=== PATIENT | male | born 1960 | race Caucasian/White ===

== ENCOUNTER 2019-12-02 09:40 | Emergency (ER) | payer OTHER ==
[2019-12-02] MEDS ORDERED: Sodium Chloride 0.9% 10 ML Syringe FLUSH PRN (10:32)
--- NOTE | 2019-12-02 11:16 | EDM.PDOC ---
ED HPI GENERAL MEDICAL PROBLEM - General Chief Complaint: Respiratory Problem Stated Complaint: COVID + SOB Time Seen by Provider: 12/02/19 09:49 Source of Information: Reports: Patient History Limitations: Reports: No Limitations - History of Present Illness INITIAL COMMENTS - FREE TEXT/NARRATIVE: The patient presents with shortness of breath, cough, generalized weakness, poly uria and COVID 19 positive. He was tested on because his tested positive. He started having some chest tightness on Friday and then on Friday he lost his sense of smell. The state called him that day and said he was positive. He noticed his breath sounds sounded like rice krispies popping when he breaths. He also is concerned that he is urinating almost hourly for the past couple of days. He is prediabetic and on metformin 500mg daily. He does not have much of a fever. He has no abdominal pain, nausea, vomiting or diarrhea. Onset: Gradual Duration: Week(s): Location: Reports: Chest Quality: Reports: Other (tightness) Severity: Mild Improves with: Reports: None Worsens with: Reports: None Associated Symptoms: Reports: Chest Pain, Cough, Fever/Chills, Shortness of Luz ath. Denies: Headaches, Nausea/Vomiting Chest Pain Score (Numeric/FACES): 5 - Related Data Allergies Allergy/AdvReac Type Severity Reaction Status Date / Time bee venom protein (honey bee) Allergy Severe Anaphylactic Verified 12/02/19 09:59 Shock clarithromycin [From Biaxin] Allergy Severe Anaphylactic Verified 12/02/19 09:59 Shock Sulfa (Sulfonamide Allergy Severe Anaphylactic Verified 12/02/19 09:59 Antibiotics) Shock Home Meds: Home Meds NIFEdipine [Nifedipine ER] 30 mg PO DAILY 12/02/19 [History] Rosuvastatin Calcium 10 mg PO DAILY 12/02/19 [History] Tapentadol [Nucynta] 50 mg PO DAILY 12/02/19 [History] allopurinoL [Zyloprim] 300 mg PO DAILY 12/02/19 [History] metFORMIN [Glucophage XR] 500 mg PO BEDTIME 12/02/19 [History] Past Medical History HEENT History: Reports: Sinusitis Cardiovascular History: Reports: High Cholesterol Musculoskeletal History: Reports: Arthritis, Fracture, Gout Neurological History: Reports: Neuropathy, Peripheral Endocrine/Metabolic History: Reports: Diabetes, Type II - Infectious Disease History Infectious Disease History: Reports: Novel Coronavirus - Past Surgical History HEENT Surgical History: Reports: Naso-Sinus Surgery Musculoskeletal Surgical History: Reports: ORIF Social & Family History - Tobacco Use Smoking Status *Q: Never Smoker - Recreational Drug Use Recreational Drug Use: No ED ROS GENERAL - Review of Systems Review Of Systems: See Below Constitutional: Reports: Weakness, Fatigue HEENT: Reports: No Symptoms Respiratory: Reports: Shortness of Breath, Cough Cardiovascular: Reports: Chest Pain Endocrine: Reports: No Symptoms GI/Abdominal: Reports: No Symptoms : Reports: No Symptoms Musculoskeletal: Reports: Other (Body ache) ED EXAM, GENERAL - Physical Exam Exam: See Below Exam Limited By: No Limitations General Appearance: Alert, No Apparent Distress Ears: Normal External Exam Nose: Normal Inspection Head: Atraumatic, Normocephalic Neck: Normal Inspection Respiratory/Chest: No Respiratory Distress, Lungs Clear, Normal Breath Sounds Cardiovascular: Regular Rate, Rhythm, No Edema, No Murmur GI/Abdominal: Soft, Non-Tender, No Organomegaly, No Mass Back Exam: Normal Inspection Extremities: Normal Inspection EKG INTERPRETATION EKG Date: 12/02/19 Time: 10:48 Rhythm: NSR Rate (Beats/Min): 68 [place]: Normal P-Wave: Present QRS: Normal ST-T: Normal QT: Normal EKG Interpretation Comments: PVC Course - Vital Signs Last Recorded V/S: Last Vital Signs Temp 97.6 F 12/02/19 09:54 Pulse 77 12/02/19 09:54 Resp 16 12/02/19 09:54 BP 137/96 H 12/02/19 09:54 Pulse Ox 93 L 12/02/19 09:54 - Orders/Labs/Meds Orders: Active Orders 24 hr Category Date Time Status Cardiac Monitoring [RC] . DIRECTED Care 12/02/19 10:32 Active EKG Documentation Completion [RC] STAT Care 12/02/19 10:33 Active Oxygen Therapy [RC] PRN Care 12/02/19 10:33 Active Peripheral IV Care [RC] . DIRECTED Care 12/02/19 10:33 Active RT Post Treatment Assessment [RC] Click to Edit Care 12/02/19 12:06 Ordered RT Pre-Treatment Assessment [RC] Click to Edit Care 12/02/19 12:06 Ordered Chest 1V Frontal [CR] Stat Exams 12/02/19 10:34 Taken UA W/MICROSCOPIC [URIN] Stat Lab 12/02/19 10:32 Ordered Sodium Chloride 0.9% [Saline Flush] Med 12/02/19 10:32 Active 10 ml FLUSH ASDIRECTED PRN Peripheral IV Insertion Adult [OM.PC] Stat Oth 12/02/19 10:32 Ordered Medication Orders Sodium Chloride (Saline Flush) 10 ml FLUSH ASDIRECTED PRN PRN Reason: Keep Vein Open Last Admin: 12/02/19 11:14 Dose: 10 ml Documented by: GUILLERMO Labs: Laboratory Tests 12/02/19 12/02/19 12/02/19 Range/Units 10:49 10:55 10:55 WBC 4.33 (4.23-9.07) K/mm3 RBC 5.01 (4.63-6.08) M/mm3 Hgb 14.6 (13.7-17.5) gm/dl Hct 44.1 (40.1-51.0) % MCV 88.0 (79.0-92.2) fl MCH 29.1 (25.7-32.2) pg MCHC 33.1 (32.2-35.5) g/dl RDW Std Deviation 42.6 (35.1-43.9) fL Plt Count 150 L (163-337) K/mm3 MPV 10.9 (9.4-12.3) fl Neut % (Auto) 68.3 H (34.0-67.9) % Lymph % (Auto) 17.8 L (21.8-53.1) % Drew % (Auto) 12.5 H (5.3-12.2) % Eos % (Auto) 0.7 L (0.8-7.0) Baso % (Auto) 0.2 (0.1-1.2) % Neut # (Auto) 2.96 (1.78-5.38) K/mm3 Lymph # (Auto) 0.77 L (1.32-3.57) K/mm3 Drew # (Auto) 0.54 (0.30-0.82) K/mm3 Eos # (Auto) 0.03 L (0.04-0.54) K/mm3 Baso # (Auto) 0.01 (0.01-0.08) K/mm3 PT 10.8 (9.7-11.7) SECONDS INR 1.01 APTT 29 (22-31) SECONDS D-Dimer, Quantitative 0.50 (0.19-0.50) mg/L Puncture Site Lt radial ABG pH 7.45 (7.35-7.45) ABG pCO2 34.3 L (35.0-45.0) mmHg ABG pO2 72.0 L (80.0-100.0) mmHg ABG HCO3 23.4 (22.0-26.0) meq/L ABG O2 Saturation 95.6 L (96.0-97.0) % ABG Base Excess 0.4 (-2-2.0) Jacobo Test Positive A-a Gradient 34 mmHg O2 Delivery Device Room air FiO2 21.00 (21.00-100.00) % Sodium (136-145) mEq/L Potassium (3.5-5.1) mEq/L Chloride (98-107) mEq/L Carbon Dioxide (21-32) mEq/L Anion Gap (5-15) BUN (7-18) mg/dL Creatinine (0.7-1.3) mg/dL Est Cr Clr Drug Dosing mL/min Estimated GFR (MDRD) (>60) mL/min BUN/Creatinine Ratio (14-18) Glucose (74-106) mg/dL Serum Osmolality (280-300) mosm/kg Lactic Acid (0.4-2.0) mmol/L Calcium (8.5-10.1) mg/dL Ferritin (26-388) ng/ml Total Bilirubin (0.2-1.0) mg/dL AST (15-37) U/L ALT (16-63) U/L Alkaline Phosphatase (46-116) U/L Lactate Dehydrogenase (85-227) U/L Troponin I (0.00-0.056) ng/mL C-Reactive Protein (<1.0) mg/dL NT-Pro-B Natriuret Pep (0-125) pg/mL Total Protein (6.4-8.2) g/dl Albumin (3.4-5.0) g/dl Globulin gm/dL Albumin/Globulin Ratio (1-2) Ketones (0.0-0.3) mM 12/02/19 12/02/1912/01/20 Range/Units 10:55 10:55 10:55 WBC (4.23-9.07) K/mm3 RBC (4.63-6.08) M/mm3 Hgb (13.7-17.5) gm/dl Hct (40.1-51.0) % MCV (79.0-92.2) fl MCH (25.7-32.2) pg MCHC (32.2-35.5) g/dl RDW Std Deviation (35.1-43.9) fL Plt Count (163-337) K/mm3 MPV (9.4-12.3) fl Neut % (Auto) (34.0-67.9) % Lymph % (Auto) (21.8-53.1) % Drew % (Auto) (5.3-12.2) % Eos % (Auto) (0.8-7.0) Baso % (Auto) (0.1-1.2) % Neut # (Auto) (1.78-5.38) K/mm3 Lymph # (Auto) (1.32-3.57) K/mm3 Drew # (Auto) (0.30-0.82) K/mm3 Eos # (Auto) (0.04-0.54) K/mm3 Baso # (Auto) (0.01-0.08) K/mm3 PT (9.7-11.7) SECONDS INR APTT (22-31) SECONDS D-Dimer, Quantitative (0.19-0.50) mg/L Puncture Site ABG pH (7.35-7.45) ABG pCO2 (35.0-45.0) mmHg ABG pO2 (80.0-100.0) mmHg ABG HCO3 (22.0-26.0) meq/L ABG O2 Saturation (96.0-97.0) % ABG Base Excess (-2-2.0) Jacobo Test A-a Gradient mmHg O2 Delivery Device FiO2 (21.00-100.00) % Sodium 140 (136-145) mEq/L Potassium 3.8 (3.5-5.1) mEq/L Chloride 103 (98-107) mEq/L Carbon Dioxide 26 (21-32) mEq/L Anion Gap 14.8 (5-15) BUN 13 (7-18) mg/dL Creatinine 0.7 (0.7-1.3) mg/dL Est Cr Clr Drug Dosing 137.78 mL/min Estimated GFR (MDRD) > 60 (>60) mL/min BUN/Creatinine Ratio 18.6 H (14-18) Glucose 128 H (74-106) mg/dL Serum Osmolality 295 (280-300) mosm/kg Lactic Acid 0.6 (0.4-2.0) mmol/L Calcium 9.1 (8.5-10.1) mg/dL Ferritin (26-388) ng/ml Total Bilirubin 0.8 (0.2-1.0) mg/dL AST 27 (15-37) U/L ALT 36 (16-63) U/L Alkaline Phosphatase 82 (46-116) U/L Lactate Dehydrogenase 196 (85-227) U/L Troponin I < 0.017 (0.00-0.056) ng/mL C-Reactive Protein 2.6 H* (<1.0) mg/dL NT-Pro-B Natriuret Pep 176 H (0-125) pg/mL Total Protein 7.4 (6.4-8.2) g/dl Albumin 3.8 (3.4-5.0) g/dl Globulin 3.6 gm/dL Albumin/Globulin Ratio 1.1 (1-2) Ketones (0.0-0.3) mM 12/02/19 12/02/19 Range/Units 10:55 10:55 WBC (4.23-9.07) K/mm3 RBC (4.63-6.08) M/mm3 Hgb (13.7-17.5) gm/dl Hct (40.1-51.0) % MCV (79.0-92.2) fl MCH (25.7-32.2) pg MCHC (32.2-35.5) g/dl RDW Std Deviation (35.1-43.9) fL Plt Count (163-337) K/mm3 MPV (9.4-12.3) fl Neut % (Auto) (34.0-67.9) % Lymph % (Auto) (21.8-53.1) % Drew % (Auto) (5.3-12.2) % Eos % (Auto) (0.8-7.0) Baso % (Auto) (0.1-1.2) % Neut # (Auto) (1.78-5.38) K/mm3 Lymph # (Auto) (1.32-3.57) K/mm3 Drew # (Auto) (0.30-0.82) K/mm3 Eos # (Auto) (0.04-0.54) K/mm3 Baso # (Auto) (0.01-0.08) K/mm3 PT (9.7-11.7) SECONDS INR APTT (22-31) SECONDS D-Dimer, Quantitative (0.19-0.50) mg/L Puncture Site ABG pH (7.35-7.45) ABG pCO2 (35.0-45.0) mmHg ABG pO2 (80.0-100.0) mmHg ABG HCO3 (22.0-26.0) meq/L ABG O2 Saturation (96.0-97.0) % ABG Base Excess (-2-2.0) Jacobo Test A-a Gradient mmHg O2 Delivery Device FiO2 (21.00-100.00) % Sodium (136-145) mEq/L Potassium (3.5-5.1) mEq/L Chloride (98-107) mEq/L Carbon Dioxide (21-32) mEq/L Anion Gap (5-15) BUN (7-18) mg/dL Creatinine (0.7-1.3) mg/dL Est Cr Clr Drug Dosing mL/min Estimated GFR (MDRD) (>60) mL/min BUN/Creatinine Ratio (14-18) Glucose (74-106) mg/dL Serum Osmolality (280-300) mosm/kg Lactic Acid (0.4-2.0) mmol/L Calcium (8.5-10.1) mg/dL Ferritin 441 H (26-388) ng/ml Total Bilirubin (0.2-1.0) mg/dL AST (15-37) U/L ALT (16-63) U/L Alkaline Phosphatase (46-116) U/L Lactate Dehydrogenase (85-227) U/L Troponin I (0.00-0.056) ng/mL C-Reactive Protein (<1.0) mg/dL NT-Pro-B Natriuret Pep (0-125) pg/mL Total Protein (6.4-8.2) g/dl Albumin (3.4-5.0) g/dl Globulin gm/dL Albumin/Globulin Ratio (1-2) Ketones 0.08 (0.0-0.3) mM Meds: Medications Generic Name Dose Route Start Last Admin Trade Name Lily PRN Reason Stop Dose Admin Sodium Chloride 10 ml 12/02/19 10:32 12/02/19 11:14 Saline Flush FLUSH 10 ml ASDIRECTED PRN Administration Keep Vein Open Discontinued Medications Generic Name Dose Route Start Last Admin Trade Name Freq PRN Reason Stop Dose Admin Albuterol 0 gm 12/02/19 12:06 Proventil Hfa INH 12/02/19 12:07 ONETIME ONE - Re-Assessments/Exams Free Text/Narrative Re-Assessment/Exam: 12/02/19 11:18 I ordered an IV saline lock, O2 2L as needed, CXR, labs, ABG, blood cultures and lactic acid. His EKG shows a NSR with a PVC and nothing acute. His CXR looks good. 12/02/19 12:08 His CBC looks good. His PT and PTT look good. His pH is normal at 7.45. His pCO2 is a little low at 34.3. His pO2 is a little low at 72. His glucose is 128. His lactic acid is normal. His ferritin is elevated at 441. His troponin is negative. His CRP is elevated at 2.6. His BNP is slightly elevated at 176. His ketones are normal. He feels better. He does not need to be admitted. I will discharge him home. Departure - Departure Time of Disposition: 12:10 Disposition: Home, Self-Care 01 Condition: Good Clinical Impression: COVID-19, Polyuria - Discharge Information *PRESCRIPTION DRUG MONITORING PROGRAM REVIEWED*: Not Applicable *COPY OF PRESCRIPTION DRUG MONITORING REPORT IN PATIENT MAGALI: Not Applicable Referrals: Jayla Akres NP [Primary Care Provider] - 1 Week Forms: ED Department Discharge Additional Instructions: Keep pushing the fluids. It appears good hydration is making you urinate so much. That is needed with this virus so keep pushing the fluids. Use the inhaler 2 puffs every 6 hours. Please return if you are worse. Sepsis Event Note (ED) - Evaluation Sepsis Screening Result: No Definite Risk - Focused Exam Vital Signs: Vital Signs Temp Pulse Resp BP Pulse Ox 12/02/19 09:54 97.6 F 77 16 137/96 H 93 L - My Orders Last 24 Hours: My Active Orders 12/02/19 10:32 Cardiac Monitoring [RC] . DIRECTED UA W/MICROSCOPIC [URIN] Stat Sodium Chloride 0.9% [Saline Flush] 10 ml FLUSH ASDIRECTED PRN Peripheral IV Insertion Adult [OM.PC] Stat 12/02/19 10:33 EKG Documentation Completion [RC] STAT Oxygen Therapy [RC] PRN Peripheral IV Care [RC] . DIRECTED 12/02/19 10:34 Chest 1V Frontal [CR] Stat 12/02/19 12:06 RT Post Treatment Assessment [RC] Click to Edit RT Pre-Treatment Assessment [RC] Click to Edit - Assessment/Plan Last 24 Hours: My Active Orders 12/02/19 10:32 Cardiac Monitoring [RC] . DIRECTED UA W/MICROSCOPIC [URIN] Stat Sodium Chloride 0.9% [Saline Flush] 10 ml FLUSH ASDIRECTED PRN Peripheral IV Insertion Adult [OM.PC] Stat 12/02/19 10:33 EKG Documentation Completion [RC] STAT Oxygen Therapy [RC] PRN Peripheral IV Care [RC] . DIRECTED 12/02/19 10:34 Chest 1V Frontal [CR] Stat 12/02/19 12:06 RT Post Treatment Assessment [RC] Click to Edit RT Pre-Treatment Assessment [RC] Click to Edit
[2019-12-02] MEDS ORDERED: Albuterol 6.7 GM Inhaler INH ONE (12:06)
--- NOTE | 2020-01-03 10:34 | CR ---
PROCEDURE INFORMATION: Exam: XR Chest, 1 View Exam date and time: 12/02/2019 10:21 AM Age: 59 years old Clinical indication: Chest pain TECHNIQUE: Imaging protocol: XR of the chest Views: 1 view. COMPARISON: No relevant prior studies available. FINDINGS: Lungs: No lung consolidation or pulmonary edema. Pleural space: No pleural effusion or pneumothorax. Heart/Mediastinum: The cardiac silhouette is not enlarged. The mediastinal contours are normal. Bones/joints: No acute osseous abnormality. IMPRESSION: No acute abnormality. COMMENTS: The exam was performed on 12/02/2019 but only presented for FINAL interpretation today. Thank you for allowing us to participate in the care of your patient. Dictated and Authenticated by: Torsten Martinez MD 12/28/2019 8:39 AM Central Time ([place] & [place]) [facility]
== END 2019-12-02 12:40 | disposition home or self-care (01) ==
LOC: JD.ED 09:40
DX: U07.1 COVID-19 (principal); R35.8 Other polyuria; E78.00 Pure hypercholesterolemia, unspecified; M10.9 Gout, unspecified; E11.42 Type 2 diabetes mellitus with diabetic polyneuropathy; Z79.84 Long term (current) use of oral hypoglycemic drugs; Z79.899 Other long term (current) drug therapy; Z91.030 Bee allergy status; Z88.1 Allergy status to other antibiotic agents; Z88.2 Allergy status to sulfonamides
CPT/HCPCS: 36415; 36600; 71045; 80053; 81001; 82009; 82728; 82803; 83605; 83615; 83880; 83930; 84484; 85025; 85379; 85610; 85730; 86140; 93005; 99285; A9270; 93010; 99283

== ENCOUNTER 2025-02-03 09:49 | Emergency (ER) | payer MEDICARE, OTHER | END 2025-02-03 11:00 | LOC: JD.ED 09:49 | DX: S01.01XA Laceration without foreign body of scalp, initial encounter (principal); E78.00 Pure hypercholesterolemia, unspecified; E11.9 Type 2 diabetes mellitus without complications; Z88.1 Allergy status to other antibiotic agents; Z88.2 Allergy status to sulfonamides; Z91.030 Bee allergy status; Z79.899 Other long term (current) drug therapy; Z86.16 Personal history of COVID-19; W01.198A Fall on same level from slipping, tripping and stumbling with subsequent striking against other object, initial encounter | CPT/HCPCS: 12002; 70450; 70450-26; 99283; J0665 ==